=== PATIENT | male | born 1945 | race Caucasian/White ===

== ENCOUNTER → 2019-07-23 | Outpatient (REF) | payer OTHER ==
[2019-07-23 14:58] LABS: FREE T4 1.1 NG/DL (0.76-1.46); FREE THYROXINE INDEX 2.9 % (1.4-3.8); THYROID STIMULATING HORMONE 0.632 uIU/ML (0.358-3.740); THYROXINE (T4) 9.9 UG/DL (4.5-12.0)
== END ==
LOC: M LABNEURO 13:06
PROVIDERS: ATTEND Psychiatry & Neurology Neurology
DX: R25.1 Tremor, unspecified (principal); G20 Parkinson's disease; E07.9 Disorder of thyroid, unspecified; E61.0 Copper deficiency; Z79.899 Other long term (current) drug therapy

== ENCOUNTER → 2019-07-25 | Outpatient (CLI) | payer OTHER ==
[~2019-07-25] MED LIST: PROHANCE 279.3MG/ML 15ML VIAL (A9576) As Ordered ONE; PROHANCE 279.3MG/ML 5ML VIAL (A9576) As Ordered ONE
[2019-07-25 17:30] LABS: BLOOD UREA NITROGEN 19 MG/DL (7-18); CREATININE FOR GFR 1.03 MG/DL (0.70-1.30); GLOMERULAR FILTRATION RATE > 60.0 (>42)
--- NOTE | 2019-07-25 18:35 | REPVR ---
PROCEDURE INFORMATION: Exam: MR Angiogram Head Without Contrast, Arteries Exam date and time: 07/25/2019 5:47 PM Age: 74 years old Clinical indication: Dizziness and giddiness and other: HX CVA, tremor; Additional info: Cerebral infarction, unspecified, unsteadiness on; Ess tremor. Given the clinical concern for stroke, evaluation of the arteries was performed. TECHNIQUE: Imaging protocol: MR angiogram head without contrast. Exam focused on the arteries. 3D rendering: MIP and/or 3D reconstructed images were created by the technologist. COMPARISON: No relevant prior studies available. FINDINGS: Right internal carotid artery: Unremarkable. Intracranial segment is patent with no significant stenosis. No aneurysm. Right anterior cerebral artery: Unremarkable. No occlusion or significant stenosis. No aneurysm. Right middle cerebral artery: Unremarkable. No occlusion or significant stenosis. No aneurysm. Right posterior cerebral artery: Unremarkable. No occlusion or significant stenosis. No aneurysm. Right vertebral artery: Unremarkable. No occlusion or significant stenosis. No aneurysm. Left internal carotid artery: Unremarkable. Intracranial segment is patent with no significant stenosis. No aneurysm. Left anterior cerebral artery: Unremarkable. No occlusion or significant stenosis. No aneurysm. Left middle cerebral artery: Unremarkable. No occlusion or significant stenosis. No aneurysm. Left posterior cerebral artery: Unremarkable. No occlusion or significant stenosis. No aneurysm. Left vertebral artery: Unremarkable. No occlusion or significant stenosis. No aneurysm. Basilar artery: Unremarkable. No occlusion or significant stenosis. No aneurysm. IMPRESSION: No major proximal vessel branch occlusion seen. Electronically signed by: Junie Cardoza On 07/25/2019 18:35:04 PM
--- NOTE | 2019-07-25 18:44 | REPVR ---
PROCEDURE INFORMATION: Exam: MR Head Without Contrast Exam date and time: 07/25/2019 5:48 PM Age: 74 years old Clinical indication: Walking, difficulty and other: HX of CVA; Additional info: Cerebral infarction, unspecified, essential tremor, unsteadiness. TECHNIQUE: Imaging protocol: MR of the head without contrast. COMPARISON: No relevant prior studies available. FINDINGS: Brain: No acute infarct identified on the diffusion-weighted imaging. The brain demonstrates mild generalized volume loss. Patchy foci of increased signal intensity in the deep and subcortical white matter on the T2 weighted imaging most likely representing chronic small vessel ischemic change. No parenchymal hemorrhage. There is a small, chronic medial right frontal infarct. Asymmetrically prominent adjacent right frontoparietal deep and subcortical white matter high signal on the T2 weighted imaging (including involvement of the corpus callosum) probably reflects gliosis. Ventricles: The ventricles appear mildly enlarged in keeping with volume loss. Bones/joints: The upper cervical spine is visualized on the sagittal T1 sequence. There is prominent left facet arthropathy at C2-C3. Soft tissues: Unremarkable. Sinuses: Trace ethmoid mucosal thickening. Mastoid air cells: Normal as visualized. No mastoid effusion. Orbits: Unremarkable. IMPRESSION: No evidence of acute infarct. Medial right frontoparietal encephalomalacia perhaps reflecting an old infarct. Electronically signed by: Junie Cardoza On 07/25/2019 18:44:00 PM
--- NOTE | 2019-07-25 18:51 | REPVR ---
PROCEDURE INFORMATION: Exam: MR Angiography Neck Without and With Contrast Exam date and time: 07/25/2019 6:02 PM Age: 74 years old Clinical indication: Dizziness and giddiness and other: HX CVA, tremor; Prior surgery; Surgery date: 6+ months; Surgery type: RT carotid stent; Additional info: Cerebral infarction, unspecified, essential tremor, unsteadiness. TECHNIQUE: Imaging protocol: Magnetic resonance angiography of the neck without and with intravenous contrast. 3D rendering: MIP and/or 3D reconstructed images were created by the technologist. Contrast material: PROHANCE; Contrast volume: 25 ml; Contrast route: IV; COMPARISON: MRA BRAIN W/O CONTRAST 07/25/2019 4:50 PM FINDINGS: Right common carotid artery: Unremarkable. No stenosis. No dissection or occlusion. Right internal carotid artery: Attenuated appearance of the distal right common carotid artery and proximal right internal carotid artery perhaps related to a stent, please correlate with patient history. The mid and distal cervical right ICA appear patent. Right external carotid artery: Limited evaluation approximately due to artifact. Mid and distal right external carotid artery appear patent. Right vertebral artery: Unremarkable. No stenosis. No dissection or occlusion. Left common carotid artery: Unremarkable. No stenosis. No dissection or occlusion. Left internal carotid artery: Mild, approximate 40% left carotid bulb stenosis. Left external carotid artery: Unremarkable. No stenosis. No dissection or occlusion of the origin. Left vertebral artery: Unremarkable. No stenosis. No dissection or occlusion. IMPRESSION: 1. Suggestion of magnetic susceptibility artifact at the right carotid bifurcation perhaps related to a carotid stent. Please correlate with patient history. Limited assessment of the distal right common carotid and proximal right internal carotid arteries on this study. Suggest carotid duplex evaluation, as needed. 2. Mild left carotid bulb stenosis. COMMENT: Using NASCET method for measuring degree of carotid artery stenosis: Mild is less than 50% stenosis. Moderate is 50-69% stenosis. Severe is 70-94% stenosis. Near occlusion is 95-99% stenosis. Electronically signed by: Junie Cardoza On 07/25/2019 18:50:47 PM
== END ==
LOC: M RAD 16:10 → EDUNIT# 16:45
PROVIDERS: ATTEND Psychiatry & Neurology Neurology
DX: I63.9 Cerebral infarction, unspecified (principal); R26.81 Unsteadiness on feet; G25.0 Essential tremor
CPT/HCPCS: 36415; 70544; 70549; 70551; 82565; 84520; A9576

== ENCOUNTER 2020-07-19 18:44 | Emergency (ER) | payer MEDICARE, OTHER ==
[~2020-07-19] VITALS: Ht 182.9 cm; Wt 70.5 kg
[2020-07-19] MEDS ORDERED: OMEP40CA97 PO (19:19)
[2020-07-19] MEDS ORDERED: PRAZ1CAP PO (19:19)
[2020-07-19] MEDS ORDERED: SERT-138 PO (19:19)
[2020-07-19] MEDS ORDERED: BUPR150T4 PO (19:19)
[2020-07-19] MEDS ORDERED: ECOT81TA5 PO (19:19)
[2020-07-19] MEDS ORDERED: HYDR-643 PO (19:19)
[2020-07-19] MEDS ORDERED: ROSU40TA4 PO (19:19)
[2020-07-19] MEDS ORDERED: PRIM50TA6 PO (19:19)
[2020-07-19] MEDS ORDERED: ATEN25TA PO (19:19)
[2020-07-19] MEDS ORDERED: AMLO10TA PO (19:19)
[2020-07-19] MEDS ORDERED: PLAV1TAB2 PO (19:19)
--- NOTE | 2020-07-19 20:37 | REPVR ---
PROCEDURE INFORMATION: Exam: XR Bilateral Hips with Pelvis when Performed Exam date and time: 07/19/2020 8:25 PM Age: 75 years old Clinical indication: Hip pain; Left hip; Additional info: Fall, left hip pain TECHNIQUE: Imaging protocol: XR bilateral hips with pelvis when performed. Views: 2 views. COMPARISON: No relevant prior studies available. FINDINGS: Bones/joints: Degenerative spondylosis lower lumbar spine. Osteoporosis. ORIF left hip. Degenerative arthropathy both hip joints. Soft tissues: Unremarkable. IMPRESSION: No acute findings. Electronically signed by: Calin Vera On 07/19/2020 20:37:37 PM
--- NOTE | 2020-07-19 20:37 | REPVR ---
PROCEDURE INFORMATION: Exam: XR Left Femur Exam date and time: 07/19/2020 8:25 PM Age: 75 years old Clinical indication: Pain; Hip; Left; Additional info: Fall, left hip pain TECHNIQUE: Imaging protocol: XR Left femur. Views: 2 views. COMPARISON: No relevant prior studies available. FINDINGS: Bones/joints: Status post ORIF left hip. Osteoporosis. No acute fracture. Soft tissues: Unremarkable. Vasculature: Atherosclerotic changes femoral artery. IMPRESSION: 1. Status post ORIF left hip. 2. No acute fracture. Electronically signed by: Calin Vera On 07/19/2020 20:36:55 PM
[2020-07-19 22:29] VITALS: BP 155/80
--- NOTE | 2020-07-22 08:38 | ECGEPIP ---
[facility] - ED Test Date: 2020-07-19 Pat Name: ABENA PRATT Department: Room: - Gender: Male Mailroom Personnel: DESIRE : 1945 Requested By: Sandro Whitfield Order Number: [id number] Reading MD: Patti Morales Measurements Intervals [place] Rate: 77 P: 41 CT: 161 QRS: 44 QRSD: 116 T: -3 QT: 416 QTc: 473 Interpretive Statements SINUS RHYTHM NSTTW abnormalities prolonged qtc no prior Electronically Signed on 07-22-2020 8:38:04 EST by Patti Morales
== END 2020-07-19 22:40 | disposition home or self-care (01) ==
LOC: M ED 18:44
DX: S70.02XA Contusion of left hip, initial encounter (principal); W01.0XXA Fall on same level from slipping, tripping and stumbling without subsequent striking against object, initial encounter; Y92.019 Unspecified place in single-family (private) house as the place of occurrence of the external cause; Y93.9 Activity, unspecified; Y99.9 Unspecified external cause status; I10 Essential (primary) hypertension; R25.1 Tremor, unspecified; Z86.73 Personal history of transient ischemic attack (TIA), and cerebral infarction without residual deficits; F41.9 Anxiety disorder, unspecified; M81.0 Age-related osteoporosis without current pathological fracture; Z96.642 Presence of left artificial hip joint; Z79.899 Other long term (current) drug therapy

== ENCOUNTER 2022-03-26 12:53 | Emergency (ER) | payer MEDICARE ==
[~2022-03-26] VITALS: Ht 182.9 cm; Wt 75.0 kg
[~2022-03-26 12:53] MED LIST changes: +AMLO10TA PO; +ATEN25TA PO; +BUPR150T12 PO; +ECOT81TA5 PO; +HYDR-643 PO; +OMEP40CA4 PO; +PLAV1TAB2 PO; +PRAZ1CAP PO; +PRIM50TA6 PO; -PROHANCE 279.3MG/ML 15ML VIAL (A9576) As Ordered ONE; -PROHANCE 279.3MG/ML 5ML VIAL (A9576) As Ordered ONE; +ROSU40TA4 PO; +SERT-138 PO
[2022-03-26] MEDS ORDERED: VENTAER INH (13:05)
[2022-03-26 15:15] LABS: BASO # 0.1 10^3/uL (0.0-0.2); BASO % 0.6 % (0.0-1.0); EOS # 0.1 10^3/uL (0.0-0.5); EOS % 1.5 % (0.0-3.0); HEMATOCRIT 44.3 % (42.0-52.0); HEMOGLOBIN 14.6 g/dl (13.5-17.5); LYMPH # 1.1 10^3/uL (1.5-5.0); MEAN CORPUSCULAR HEMOGLOBIN 28.6 pg (27.0-33.0); MEAN CORPUSCULAR VOLUME 86.7 fl (80.0-96.0); MONO # 0.8 10^3/uL (0.0-0.8); MONO % 10.3 % (2.0-8.0); NEUTROPHILS % 73.4 % (36.0-66.0); PLATELET COUNT, AUTOMATED 190 10^3/uL (150-450); RED BLOOD COUNT 5.11 10^6/uL (4.30-6.10); WHITE BLOOD COUNT 8.2 10^3/uL (4.0-10.0)
[2022-03-26 15:59] LABS: ALBUMIN 4.2 GM/DL (3.2-5.2); ALT/SGPT 34 U/L (12-78); BILIRUBIN,TOTAL 1.2 MG/DL (0.2-1.0); BLOOD UREA NITROGEN 12 MG/DL (7-18); CALCIUM LEVEL 9.4 MG/DL (8.8-10.2); CARBON DIOXIDE LEVEL 22 MEQ/L (21-32); CHLORIDE LEVEL 109 MEQ/L (98-107); CREATININE FOR GFR 0.94 MG/DL (0.70-1.30); GLOMERULAR FILTRATION RATE > 60.0 (>42); GLUCOSE, FASTING 107 MG/DL (70-100); POTASSIUM SERUM 3.9 MEQ/L (3.5-5.1); SODIUM LEVEL 138 MEQ/L (136-145); TOTAL PROTEIN 7.5 GM/DL (6.4-8.2)
[2022-03-26] MEDS ORDERED: ISOVUE-370 76% 100ML VIAL As Ordered ONE (19:37)
[2022-03-26] MEDS ORDERED: MECL1TAB31 PO (20:45)
[2022-03-26 20:46] VITALS: BP 160/89
[2022-03-26] MEDS ORDERED: MECLIZINE 25 MG TABLET PO ONE (21:10)
== END 2022-03-26 21:19 | disposition home or self-care (01) ==
LOC: M ED 12:53
DX: H81.4 Vertigo of central origin (principal); F41.9 Anxiety disorder, unspecified; Z86.73 Personal history of transient ischemic attack (TIA), and cerebral infarction without residual deficits; Z79.51 Long term (current) use of inhaled steroids; Z79.01 Long term (current) use of anticoagulants; Z79.899 Other long term (current) drug therapy
CPT/HCPCS: 36415; 70450; 70496; 70498; 80053; 84443; 85025; 93005; 97112; 97116; 97162; 99285; Q9967

== ENCOUNTER → 2024-08-13 | Outpatient (CLI) | payer MEDICARE, OTHER ==
[~2024-08-13] MED LIST changes: +CLOP75TA99 PO; +MECL-209 PO; -PLAV1TAB2 PO; -ROSU40TA4 PO; +ROSU40TA81 PO; +VENTAER INH
== END ==
LOC: M RAD 15:37
PROVIDERS: ATTEND Physician Assistant Medical
DX: Z12.2 Encounter for screening for malignant neoplasm of respiratory organs (principal); Z87.891 Personal history of nicotine dependence; K80.20 Calculus of gallbladder without cholecystitis without obstruction; R91.1 Solitary pulmonary nodule

== ENCOUNTER 2024-09-17 16:47 | Emergency (ER) | payer OTHER ==
[~2024-09-17] VITALS: Ht 182.9 cm; Wt 72.0 kg
[2024-09-17 16:52] VITALS: BP 149/75; TEMP 96.2; O2SAT 96
== END 2024-09-17 19:36 | disposition left against medical advice (07) ==
LOC: M ED 16:47
DX: Z53.21 Procedure and treatment not carried out due to patient leaving prior to being seen by health care provider (principal)

== ENCOUNTER 2025-01-24 15:49 | Inpatient (IN) | payer OTHER, MEDICARE ==
[~2025-01-24] VITALS: Ht 180.3 cm; Wt 71.5 kg
[~2025-01-24 15:49] MED LIST changes: +AMLO-751 PO; -AMLO10TA PO
[2025-01-24 17:36] LABS: BASO # 0.0 10^3/uL (0.0-0.2); BASO % 0.3 % (0.0-1.0); EOS # 0.1 10^3/uL (0.0-0.5); EOS % 0.7 % (0.0-3.0); LYMPH # 0.9 10^3/uL (1.5-5.0); LYMPH % 5.9 % (24.0-44.0); MONO # 1.3 10^3/uL (0.0-0.8); MONO % 8.8 % (2.0-8.0); NEUTROPHILS # 12.3 10^3/uL (1.5-8.5); NEUTROPHILS % 83.9 % (36.0-66.0); PLATELET COUNT, AUTOMATED 153 10^3/uL (150-450)
[2025-01-24 18:05] LABS: CALCIUM LEVEL 8.2 MG/DL (8.3-10.6); CARBON DIOXIDE LEVEL 22 MMOL/L (20-31); CHLORIDE LEVEL 107 MMOL/L (98-107); CREATININE FOR GFR 0.76 MG/DL (0.70-1.30); GLOMERULAR FILTRATION RATE > 90.0 (>42); POTASSIUM SERUM 3.5 MMOL/L (3.5-5.1); SODIUM LEVEL 141 MMOL/L (136-145)
[2025-01-24 18:52] LABS: ETHYL ALCOHOL (ETHANOL) < 0.003 % (0.000-0.010)
[2025-01-24 18:54] LABS: ALT/SGPT 34 U/L (7.0-40); AST/SGOT 34 U/L (<34); SALICYLATE LEVEL < 3.0 MG/DL (<30)
[2025-01-24] MEDS: MORPHINE 4 MG/ML 1 ML VIAL IV ONE ×2 (19:10→22:22)
[2025-01-24 19:21] LABS: AMPHETAMINES LEVEL URINE NEGATIVE (NEGATIVE); BARBITURATES URINE NEGATIVE (NEGATIVE); BENZODIAZEPINES URINE NEGATIVE (NEGATIVE); CANNABINOIDS URINE NEGATIVE (NEGATIVE); COCAINE METABOLITE URINE NEGATIVE (NEGATIVE); METHADONE URINE NEGATIVE (NEGATIVE); PHENCYCLIDINE URINE NEGATIVE (NEGATIVE)
[2025-01-24 19:37] LABS: OPIATES URINE POSITIVE (NEGATIVE)
[2025-01-24] MEDS ORDERED: ZOLO100T PO (21:23)
[2025-01-24] MEDS ORDERED: GLIP5TAB17 PO (21:25)
[2025-01-24] MEDS ORDERED: OSTETAB2 PO (21:25)
[2025-01-24] MEDS ORDERED: HOME MED LIST COMPLETE! XX SCH (21:30)
[2025-01-24] MEDS ORDERED: ALBUTEROL SULFATE 2.5 MG/0.5 ML INH CONCENTRATE NEB SOLN NEB PRN (22:55)
[2025-01-25] MEDS: KETOROLAC 30 MG/ML 1 ML VIAL IV SCH (01:06)
[2025-01-25] MEDS: ACETAMINOPHEN 325 MG TAB PO SCH (01:06)
[2025-01-25 06:39] LABS: BASO # 0.0 10^3/uL (0.0-0.2); BASO % 0.2 % (0.0-1.0); EOS # 0.0 10^3/uL (0.0-0.5); EOS % 0.0 % (0.0-3.0); LYMPH # 1.1 10^3/uL (1.5-5.0); LYMPH % 10.4 % (24.0-44.0); MONO # 1.5 10^3/uL (0.0-0.8); MONO % 14.4 % (2.0-8.0); NEUTROPHILS # 8.0 10^3/uL (1.5-8.5); NEUTROPHILS % 74.5 % (36.0-66.0); PLATELET COUNT, AUTOMATED 175 10^3/uL (150-450)
[2025-01-25 07:14] LABS: CALCIUM LEVEL 8.2 MG/DL (8.3-10.6); CARBON DIOXIDE LEVEL 26.0 MMOL/L (20-31); CHLORIDE LEVEL 107.0 MMOL/L (98-107); CREATININE FOR GFR 0.99 MG/DL (0.70-1.30); GLOMERULAR FILTRATION RATE 78.5 (>42); POTASSIUM SERUM 4.1 MMOL/L (3.5-5.1); SODIUM LEVEL 144.0 MMOL/L (136-145)
[2025-01-25] MEDS: PANTOPRAZOLE 40MG VIAL IV SCH (08:30)
[2025-01-25] MEDS: buPROPion **XL** 150 MG TABLET PO SCH (08:31)
[2025-01-25] MEDS: SERTRALINE 100 MG TAB PO SCH (08:32)
[2025-01-25] MEDS: ENOXAPARIN 40 MG/0.4 ML SYRINGE (J1650 PER 10MG) SC SCH (09:00)
[2025-01-25] MEDS ORDERED: SODIUM CHLORIDE 0.9% 1000 ML IV ONE (10:35)
[2025-01-25] MEDS: NS (Normal Saline) 0.9% 1,000 ML IV SCH (10:44)
[2025-01-25 15:05] VITALS: BP 130/81; TEMP 98.1; O2SAT 95
[2025-01-25] MEDS: MORPHINE 4 MG/ML 1 ML VIAL IV PRN (21:26)
[2025-01-25 21:33] VITALS: BP 133/92; TEMP 98.1; O2SAT 92
[2025-01-26] VITALS (10 sets, daily range): BP systolic 104–140; BP diastolic 47–73; TEMP 97.2–99.3; O2SAT 87–98
[2025-01-26 07:37] LABS: BASO # 0.0 10^3/uL (0.0-0.2); BASO % 0.2 % (0.0-1.0); EOS # 0.1 10^3/uL (0.0-0.5); EOS % 0.6 % (0.0-3.0); LYMPH # 0.8 10^3/uL (1.5-5.0); LYMPH % 6.1 % (24.0-44.0); MONO # 1.3 10^3/uL (0.0-0.8); MONO % 10.5 % (2.0-8.0); NEUTROPHILS # 10.4 10^3/uL (1.5-8.5); NEUTROPHILS % 82.0 % (36.0-66.0)
[2025-01-26 07:41] LABS: PLATELET COUNT, AUTOMATED 121 10^3/uL (150-450)
[2025-01-26] MEDS ORDERED: MIDAZOLAM INJ 2 MG/2 ML VIAL As Ordered ONE (07:56)
[2025-01-26] MEDS ORDERED: dexAMETHasone 4 MG/ML 1 ML VIAL As Ordered ONE (07:57)
[2025-01-26] MEDS ORDERED: SUGAMMADEX SODIUM 500 MG/5 ML VIAL As Ordered ONE (07:57)
[2025-01-26] MEDS ORDERED: ONDANSETRON 4MG 2ML VIAL As Ordered ONE (07:57)
[2025-01-26] MEDS ORDERED: KETOROLAC 30 MG/ML 1 ML VIAL As Ordered ONE (07:57)
[2025-01-26] MEDS ORDERED: LIDOCAINE 2% 100 MG/5 ML SDV (FOR ANES.) As Ordered ONE (07:57)
[2025-01-26] MEDS ORDERED: ROCURONIUM BROMIDE 50MG/5ML VIAL As Ordered ONE (07:57)
[2025-01-26] MEDS ORDERED: ACETAMINOPHEN 1000MG/100ML IV BAG As Ordered ONE (07:57)
[2025-01-26 07:59] LABS: CALCIUM LEVEL 7.9 MG/DL (8.3-10.6); CARBON DIOXIDE LEVEL 24.0 MMOL/L (20-31); CHLORIDE LEVEL 107.0 MMOL/L (98-107); CREATININE FOR GFR 1.18 MG/DL (0.70-1.30); GLOMERULAR FILTRATION RATE 63.6 (>42); POTASSIUM SERUM 3.6 MMOL/L (3.5-5.1); SODIUM LEVEL 142.0 MMOL/L (136-145)
[2025-01-26] MEDS: NS (Normal Saline) 0.9% 1,000 ML IV SCH (09:00)
[2025-01-26] MEDS: TRANEXAMIC ACID 100 MG/ML 10ML VIAL As Ordered ONE (09:23)
[2025-01-26] MEDS ORDERED: HYDROmorphone HCL 2 MG/ML 1 ML VIAL As Ordered ONE (09:41)
[2025-01-26] MEDS ORDERED: PHENYLephrine 500MCG 5ML (100MCG/ML) SYRINGE As Ordered ONE (10:57)
[2025-01-26] MEDS: ceFAZolin SODIUM 2 GM in DEXTROSE 5% (D5W) ADV/MINI-BAG 50 ML IV SCH (18:00)
[2025-01-27] VITALS (8 sets, daily range): BP systolic 108–118; BP diastolic 47–69; TEMP 97.9–98.8; O2SAT 92–96
[2025-01-27 07:52] LABS: CALCIUM LEVEL 6.8 MG/DL (8.3-10.6); CARBON DIOXIDE LEVEL 24.0 MMOL/L (20-31); CHLORIDE LEVEL 110.0 MMOL/L (98-107); CREATININE FOR GFR 0.98 MG/DL (0.70-1.30); GLOMERULAR FILTRATION RATE 79.4 (>42); POTASSIUM SERUM 3.6 MMOL/L (3.5-5.1); SODIUM LEVEL 145.0 MMOL/L (136-145)
[2025-01-27 08:12] LABS: BASO # 0.0 10^3/uL (0.0-0.2); BASO % 0.3 % (0.0-1.0); EOS # 0.1 10^3/uL (0.0-0.5); EOS % 1.4 % (0.0-3.0); LYMPH # 1.0 10^3/uL (1.5-5.0); LYMPH % 12.5 % (24.0-44.0); MONO # 0.9 10^3/uL (0.0-0.8); MONO % 11.8 % (2.0-8.0); NEUTROPHILS # 5.8 10^3/uL (1.5-8.5); NEUTROPHILS % 73.5 % (36.0-66.0)
[2025-01-27 08:51] LABS: PLATELET COUNT, AUTOMATED 95 10^3/uL (150-450)
[2025-01-27] MEDS: ACETAMINOPHEN 500 MG TAB PO SCH (09:28)
[2025-01-28 08:55] LABS: BASO # 0.0 10^3/uL (0.0-0.2); BASO % 0.4 % (0.0-1.0); EOS # 0.3 10^3/uL (0.0-0.5); EOS % 3.2 % (0.0-3.0); LYMPH # 0.9 10^3/uL (1.5-5.0); LYMPH % 10.7 % (24.0-44.0); MONO # 1.1 10^3/uL (0.0-0.8); MONO % 13.5 % (2.0-8.0); NEUTROPHILS # 6.1 10^3/uL (1.5-8.5); NEUTROPHILS % 71.7 % (36.0-66.0); PLATELET COUNT, AUTOMATED 124 10^3/uL (150-450)
[2025-01-28 09:09] LABS: CALCIUM LEVEL 7.3 MG/DL (8.3-10.6); CARBON DIOXIDE LEVEL 26 MMOL/L (20-31); CHLORIDE LEVEL 107 MMOL/L (98-107); CREATININE FOR GFR 0.72 MG/DL (0.70-1.30); GLOMERULAR FILTRATION RATE > 90.0 (>42); POTASSIUM SERUM 3.5 MMOL/L (3.5-5.1); SODIUM LEVEL 144 MMOL/L (136-145)
[2025-01-28] MEDS: ENOXAPARIN 40 MG/0.4 ML SYRINGE (J1650 PER 10MG) SC SCH (10:29)
[2025-01-28] MEDS ORDERED: TRAM50TA2 PO (13:33)
[2025-01-28] MEDS ORDERED: SENN1TAB85 PO (13:33)
[2025-01-28] MEDS ORDERED: FERR325T3 PO (13:33)
[2025-01-28] MEDS ORDERED: OXYC-517 PO (13:33)
[2025-01-28] MEDS ORDERED: ACET-683 PO (13:33)
[2025-01-28] MEDS ORDERED: ENOX40IN3 SC (13:33)
[2025-01-28 14:00] VITALS: BP 117/59; TEMP 98.2; O2SAT 94
== END 2025-01-28 16:30 | DRG 481 ==
LOC: M ED 15:49 → EDBD 15:49 → M ED INP 22:53 → M MS5PR 01-25 15:00
PROVIDERS: ADMIT Internal Medicine Nephrology; ATTEND Internal Medicine Nephrology
PROC: 0QS606Z Reposition Right Upper Femur with Intramedullary Internal Fixation Device, Open Approach (ICD-10-PCS; principal; 2025-01-26 08:30)
PROC: 30233N1 Transfusion of Nonautologous Red Blood Cells into Peripheral Vein, Percutaneous Approach (ICD-10-PCS; 2025-01-27)
DX: S72.21XA Displaced subtrochanteric fracture of right femur, initial encounter for closed fracture (principal); R45.851 Suicidal ideations; D62 Acute posthemorrhagic anemia; S42.201A Unspecified fracture of upper end of right humerus, initial encounter for closed fracture; S72.141A Displaced intertrochanteric fracture of right femur, initial encounter for closed fracture; F32.A Depression, unspecified; J44.9 Chronic obstructive pulmonary disease, unspecified; I10 Essential (primary) hypertension; E11.51 Type 2 diabetes mellitus with diabetic peripheral angiopathy without gangrene; E78.5 Hyperlipidemia, unspecified; F17.200 Nicotine dependence, unspecified, uncomplicated; Z95.5 Presence of coronary angioplasty implant and graft; Z95.1 Presence of aortocoronary bypass graft; M48.02 Spinal stenosis, cervical region; M85.80 Other specified disorders of bone density and structure, unspecified site; G25.0 Essential tremor; W20.8XXA Other cause of strike by thrown, projected or falling object, initial encounter; Y92.009 Unspecified place in unspecified non-institutional (private) residence as the place of occurrence of the external cause; Z86.73 Personal history of transient ischemic attack (TIA), and cerebral infarction without residual deficits

== ENCOUNTER 2025-01-28 14:05 | Inpatient (IN) | payer MEDICARE, OTHER ==
[~2025-01-28] VITALS: Ht 180.3 cm; Wt 68.9 kg
[2025-01-28] MEDS: FERROUS SULFATE 325 MG TAB PO SCH (09:00)
[~2025-01-28 14:05] MED LIST changes: +ACET-683 PO; +ENOX40IN3 SC; +FERR325T3 PO; +GLIP5TAB17 PO; +OSTETAB2 PO; +OXYC-517 PO; +SENN1TAB85 PO; +TRAM50TA2 PO; +ZOLO100T PO
[2025-01-28] MEDS ORDERED: ONDANSETRON 4MG ORAL DISINTEGRATING TAB PO PRN (15:20)
[2025-01-28] MEDS ORDERED: ALBUTEROL 90 MCG/ACT 8 GM HFA INHALER INH PRN (15:20)
[2025-01-28] MEDS ORDERED: BISACODYL 5 MG TAB PO PRN (15:40)
[2025-01-28] MEDS ORDERED: MOM 30 ML SUSPENSION UDC PO PRN (15:40)
[2025-01-28] MEDS ORDERED: BISACODYL 10 MG SUPP PR PRN (15:40)
[2025-01-28] MEDS ORDERED: MAALOX 30 ML SUSP *UDC PO PRN (15:40)
[2025-01-28 16:30] VITALS: BP 169/79; TEMP 99.9; O2SAT 94
[2025-01-28] MEDS: ACETAMINOPHEN 500 MG TAB PO SCH (17:09)
[2025-01-28 19:40] VITALS: BP 167/79; TEMP 97.1; O2SAT 92
[2025-01-28] MEDS: SENNOSIDES/DOCUSATE SODIUM 8.6 MG/50MG TAB PO SCH (20:46)
[2025-01-28] MEDS: ROSUVASTATIN 10 MG TAB PO SCH (20:46)
[2025-01-28] MEDS: PERCOCET 5MG/325MG TAB PO PRN (22:22)
[2025-01-29 04:20] VITALS: BP 159/70; TEMP 97.6; O2SAT 95
[2025-01-29] MEDS: MIRALAX *UNIT DOSE* 17 GM PACKET PO SCH (07:14)
[2025-01-29 07:18] LABS: BASO # 0.0 10^3/uL (0.0-0.2); BASO % 0.2 % (0.0-1.0); EOS # 0.2 10^3/uL (0.0-0.5); EOS % 2.1 % (0.0-3.0); LYMPH # 0.7 10^3/uL (1.5-5.0); LYMPH % 7.2 % (24.0-44.0); MONO # 1.0 10^3/uL (0.0-0.8); MONO % 10.3 % (2.0-8.0); NEUTROPHILS # 7.5 10^3/uL (1.5-8.5); NEUTROPHILS % 79.3 % (36.0-66.0); PLATELET COUNT, AUTOMATED 140 10^3/uL (150-450)
[2025-01-29] MEDS: OMEPRAZOLE 20MG CAP PO SCH (07:24)
[2025-01-29] MEDS: SERTRALINE 100 MG TAB PO SCH (07:24)
[2025-01-29] MEDS: buPROPion **XL** 150 MG TABLET PO SCH (07:25)
[2025-01-29] MEDS: ENOXAPARIN 40 MG/0.4 ML SYRINGE (J1650 PER 10MG) SC SCH (07:26)
[2025-01-29] MEDS: CLOPIDOGREL 75 MG TAB PO SCH (07:27)
[2025-01-29] MEDS: glipiZIDE 5 MG TAB PO SCH (07:27)
[2025-01-29 07:42] LABS: CALCIUM LEVEL 7.9 MG/DL (8.3-10.6); CARBON DIOXIDE LEVEL 26 MMOL/L (20-31); CHLORIDE LEVEL 108 MMOL/L (98-107); CREATININE FOR GFR 0.66 MG/DL (0.70-1.30); GLOMERULAR FILTRATION RATE > 90.0 (>42); POTASSIUM SERUM 3.3 MMOL/L (3.5-5.1); SODIUM LEVEL 144 MMOL/L (136-145)
[2025-01-29 08:37] VITALS: BP 126/64; O2SAT 95
[2025-01-29 11:16] VITALS: BP 130/62
[2025-01-29] MEDS: **hydrALAZINE HCL** 25 MG TAB PO ONE (11:17)
[2025-01-29] MEDS: amLODIPine 5 MG TAB PO ONE (11:26)
[2025-01-29 12:00] VITALS: BP 104/85; TEMP 98.1; O2SAT 94
[2025-01-29 19:35] VITALS: BP 159/74; TEMP 96.7; O2SAT 95
[2025-01-29] MEDS: amLODIPine 5 MG TAB PO SCH (20:42)
[2025-01-29 21:10] VITALS: BP 142/71
[2025-01-30 03:33] VITALS: BP 157/69; TEMP 96.8; O2SAT 93
[2025-01-30] MEDS: **hydrALAZINE HCL** 25 MG TAB PO PRN (04:35)
[2025-01-30 05:00] VITALS: BP 143/74
[2025-01-30] MEDS: SIMETHICONE 80MG CHEW TAB PO PRN (06:25)
[2025-01-30] MEDS ORDERED: SALIVA SUBSTITUTE BTL MT PRN (15:55)
[2025-01-30] MEDS ORDERED: PILL CUTTER 1 EACH XX PRN (16:05)
[2025-01-30] MEDS: LIDOCAINE 5% PATCH TD ONE (17:13)
[2025-01-30 20:00] VITALS: BP 134/62; TEMP 98.2; O2SAT 95
[2025-01-31 04:00] VITALS: BP 142/68; TEMP 97.5; O2SAT 92
[2025-01-31 07:32] LABS: PLATELET COUNT, AUTOMATED 259 10^3/uL (150-450)
[2025-01-31 08:01] LABS: CALCIUM LEVEL 8.2 MG/DL (8.3-10.6); CARBON DIOXIDE LEVEL 25.0 MMOL/L (20-31); CHLORIDE LEVEL 103.0 MMOL/L (98-107); CREATININE FOR GFR 0.85 MG/DL (0.70-1.30); GLOMERULAR FILTRATION RATE 89.5 (>42); POTASSIUM SERUM 3.0 MMOL/L (3.5-5.1); SODIUM LEVEL 141.0 MMOL/L (136-145)
[2025-01-31] MEDS: LIDOCAINE 5% PATCH TD SCH (09:00)
[2025-01-31 12:00] VITALS: BP 117/59; TEMP 96.8; O2SAT 97
[2025-01-31] MEDS: POTASSIUM CHLORIDE 10MEQ SR TABLET PO ONE (12:34)
[2025-01-31] MEDS: POTASSIUM CHLORIDE 10MEQ SR TABLET PO SCH (19:55)
[2025-01-31 20:00] VITALS: BP 120/58; TEMP 99.1; O2SAT 95
[2025-02-01 04:00] VITALS: BP 153/69; TEMP 98.7; O2SAT 95
[2025-02-01 09:51] LABS: BASO # 0.1 10^3/uL (0.0-0.2); BASO % 0.4 % (0.0-1.0); EOS # 0.4 10^3/uL (0.0-0.5); EOS % 3.5 % (0.0-3.0); LYMPH # 0.6 10^3/uL (1.5-5.0); LYMPH % 5.3 % (24.0-44.0); MONO # 1.2 10^3/uL (0.0-0.8); MONO % 10.3 % (2.0-8.0); NEUTROPHILS # 9.2 10^3/uL (1.5-8.5); NEUTROPHILS % 76.6 % (36.0-66.0); PLATELET COUNT, AUTOMATED 258 10^3/uL (150-450)
[2025-02-01 10:19] LABS: CALCIUM LEVEL 8.3 MG/DL (8.3-10.6); CARBON DIOXIDE LEVEL 24.0 MMOL/L (20-31); CHLORIDE LEVEL 104.0 MMOL/L (98-107); CREATININE FOR GFR 1.47 MG/DL (0.70-1.30); GLOMERULAR FILTRATION RATE 48.8 (>42); POTASSIUM SERUM 3.6 MMOL/L (3.5-5.1); SODIUM LEVEL 140.0 MMOL/L (136-145)
[2025-02-01] MEDS: POTASSIUM CHLORIDE 10MEQ SR TABLET PO ONE (12:24)
[2025-02-01] MEDS: NS (Normal Saline) 0.9% 1,000 ML IV SCH (13:05)
[2025-02-01 13:26] VITALS: BP 135/61; TEMP 97.9; O2SAT 98
[2025-02-01 16:54] LABS: KETONE, URINE AUTO RFX NEGATIVE (NEGATIVE); LEUKOCYTE ESTERASE UR AUTO RFX NEGATIVE (NEGATIVE); MUCUS, URINE RFX SMALL (NEGATIVE); NITRITE, URINE AUTO RFX NEGATIVE (NEGATIVE); RBC, URINE AUTO RFX 5 /HPF (0-3); SQUAM EPITHELIAL CELL UR AURFX 0 /HPF (0-6)
[2025-02-01 16:55] LABS: WBC, URINE AUTO RFX 15 /HPF (0-3)
[2025-02-01 20:00] VITALS: BP 111/54; TEMP 96.9; O2SAT 94
[2025-02-02 03:34] VITALS: BP 161/70; TEMP 98.7; O2SAT 97
[2025-02-02] MEDS: POTASSIUM CHLORIDE 10MEQ SR TABLET PO SCH (07:20)
[2025-02-02 08:35] LABS: CALCIUM LEVEL 7.6 MG/DL (8.3-10.6); CARBON DIOXIDE LEVEL 23 MMOL/L (20-31); CHLORIDE LEVEL 108 MMOL/L (98-107); CREATININE FOR GFR 0.81 MG/DL (0.70-1.30); GLOMERULAR FILTRATION RATE > 90.0 (>42); POTASSIUM SERUM 3.7 MMOL/L (3.5-5.1); SODIUM LEVEL 141 MMOL/L (136-145)
[2025-02-02 12:08] VITALS: BP 144/65; TEMP 97.8; O2SAT 98
[2025-02-02 20:00] VITALS: BP_SYST 132; BP_SYST 141; BP_DIAS 66; BP_DIAS 68; TEMP 97.1; O2SAT 97
[2025-02-03 04:00] VITALS: BP 150/83; TEMP 97.1; O2SAT 95
[2025-02-03 07:24] LABS: PLATELET COUNT, AUTOMATED 232 10^3/uL (150-450)
[2025-02-03 08:02] LABS: CALCIUM LEVEL 7.4 MG/DL (8.3-10.6); CARBON DIOXIDE LEVEL 22 MMOL/L (20-31); CHLORIDE LEVEL 107 MMOL/L (98-107); CREATININE FOR GFR 0.65 MG/DL (0.70-1.30); GLOMERULAR FILTRATION RATE > 90.0 (>42); POTASSIUM SERUM 3.8 MMOL/L (3.5-5.1); SODIUM LEVEL 141 MMOL/L (136-145)
[2025-02-03 12:00] VITALS: BP 152/65; TEMP 98.2; O2SAT 95
[2025-02-03 20:00] VITALS: BP 157/72; TEMP 98.4; O2SAT 94
[2025-02-04 04:00] VITALS: BP 151/65; TEMP 98.4; O2SAT 94
[2025-02-04 08:26] LABS: CALCIUM LEVEL 7.9 MG/DL (8.3-10.6); CARBON DIOXIDE LEVEL 25 MMOL/L (20-31); CHLORIDE LEVEL 105 MMOL/L (98-107); CREATININE FOR GFR 0.62 MG/DL (0.70-1.30); GLOMERULAR FILTRATION RATE > 90.0 (>42); POTASSIUM SERUM 4.0 MMOL/L (3.5-5.1); SODIUM LEVEL 140 MMOL/L (136-145)
[2025-02-04 12:39] VITALS: BP 134/60; TEMP 98.1; O2SAT 97
[2025-02-04 20:00] VITALS: BP 146/67; TEMP 97.9; O2SAT 95
[2025-02-04] MEDS: TAMSULOSIN 0.4 MG CAP PO SCH (20:35)
[2025-02-05 04:00] VITALS: BP 156/72; TEMP 98.3; O2SAT 96
[2025-02-05 05:00] VITALS: BP 146/68
[2025-02-05 07:39] LABS: CALCIUM LEVEL 8.1 MG/DL (8.3-10.6); CARBON DIOXIDE LEVEL 24 MMOL/L (20-31); CHLORIDE LEVEL 104 MMOL/L (98-107); CREATININE FOR GFR 0.62 MG/DL (0.70-1.30); GLOMERULAR FILTRATION RATE > 90.0 (>42); POTASSIUM SERUM 3.9 MMOL/L (3.5-5.1); SODIUM LEVEL 139 MMOL/L (136-145)
[2025-02-05 12:13] VITALS: BP 129/72; TEMP 98.7; O2SAT 96
[2025-02-05] MEDS: IBUPROFEN 400 MG TAB PO SCH (13:52)
[2025-02-05] MEDS: BISACODYL 5 MG TAB PO ONE (16:13)
[2025-02-05 20:00] VITALS: BP 148/70; TEMP 98.4; O2SAT 93
[2025-02-05] MEDS: FAMOTIDINE 20 MG TAB PO SCH (20:34)
[2025-02-06 04:00] VITALS: BP 161/73; TEMP 97.8; O2SAT 96
[2025-02-06 04:38] VITALS: BP 148/76
[2025-02-06 07:37] LABS: PLATELET COUNT, AUTOMATED 341 10^3/uL (150-450)
[2025-02-06] MEDS ORDERED: BISACODYL 5 MG TAB PO ONE (10:25)
[2025-02-06 12:00] VITALS: BP 116/56; TEMP 97.9; O2SAT 98
[2025-02-06] MEDS: LIDOCAINE 5% PATCH TD ONE (13:33)
[2025-02-06 20:00] VITALS: BP 141/60; TEMP 97.6; O2SAT 97
[2025-02-07 04:00] VITALS: BP 162/76; TEMP 98.2; O2SAT 95
[2025-02-07 05:03] VITALS: BP 148/78
[2025-02-07] MEDS: LIDOCAINE 5% PATCH TD SCH (07:08)
[2025-02-07 11:50] VITALS: BP 151/69; TEMP 97.7; O2SAT 98
[2025-02-07 20:00] VITALS: BP 148/65; TEMP 97.8; O2SAT 95
[2025-02-08 05:00] VITALS: BP 162/78; TEMP 97.4; O2SAT 97
[2025-02-08 08:09] LABS: BASO # 0.1 10^3/uL (0.0-0.2); BASO % 0.5 % (0.0-1.0); EOS # 0.4 10^3/uL (0.0-0.5); EOS % 3.2 % (0.0-3.0); LYMPH # 0.7 10^3/uL (1.5-5.0); LYMPH % 6.6 % (24.0-44.0); MONO # 0.7 10^3/uL (0.0-0.8); MONO % 6.4 % (2.0-8.0); NEUTROPHILS # 9.1 10^3/uL (1.5-8.5); NEUTROPHILS % 82.4 % (36.0-66.0); PLATELET COUNT, AUTOMATED 325 10^3/uL (150-450)
[2025-02-08 08:32] LABS: CALCIUM LEVEL 8.3 MG/DL (8.3-10.6); CARBON DIOXIDE LEVEL 22 MMOL/L (20-31); CHLORIDE LEVEL 106 MMOL/L (98-107); CREATININE FOR GFR 0.60 MG/DL (0.70-1.30); GLOMERULAR FILTRATION RATE > 90.0 (>42); POTASSIUM SERUM 4.5 MMOL/L (3.5-5.1); SODIUM LEVEL 139 MMOL/L (136-145)
[2025-02-08] MEDS ORDERED: ONDANSETRON 4MG ORAL DISINTEGRATING TAB SL PRN (10:35)
[2025-02-08 11:39] VITALS: BP 112/56; TEMP 97.7; O2SAT 96
[2025-02-08] MEDS ORDERED: VANICREAM MOISTURIZING SKIN CREAM 113GM TUBE TOP PRN (13:25)
[2025-02-08 20:00] VITALS: BP 144/66; TEMP 97.3; O2SAT 97
[2025-02-09 04:00] VITALS: BP 124/61; TEMP 98.3; O2SAT 96
[2025-02-09 11:51] VITALS: BP 150/70; TEMP 98.2; O2SAT 98
[2025-02-09 20:00] VITALS: BP 145/68; TEMP 98; O2SAT 98
[2025-02-10 04:00] VITALS: BP 161/82; TEMP 98.1; O2SAT 96
[2025-02-10 05:00] VITALS: BP 142/76
[2025-02-10 12:01] VITALS: BP 146/66; TEMP 98.2; O2SAT 98
[2025-02-10 20:00] VITALS: BP 158/74; TEMP 97.7; O2SAT 96
[2025-02-11 04:00] VITALS: BP 154/75; TEMP 97.6; O2SAT 95
[2025-02-11 07:54] LABS: BASO # 0.1 10^3/uL (0.0-0.2); BASO % 0.9 % (0.0-1.0); EOS # 0.3 10^3/uL (0.0-0.5); EOS % 3.6 % (0.0-3.0); LYMPH # 0.7 10^3/uL (1.5-5.0); LYMPH % 9.6 % (24.0-44.0); MONO # 0.8 10^3/uL (0.0-0.8); MONO % 10.1 % (2.0-8.0); NEUTROPHILS # 5.7 10^3/uL (1.5-8.5); NEUTROPHILS % 75.0 % (36.0-66.0); PLATELET COUNT, AUTOMATED 338 10^3/uL (150-450)
[2025-02-11 08:20] LABS: CALCIUM LEVEL 8.7 MG/DL (8.3-10.6); CARBON DIOXIDE LEVEL 25 MMOL/L (20-31); CHLORIDE LEVEL 103 MMOL/L (98-107); CREATININE FOR GFR 0.65 MG/DL (0.70-1.30); GLOMERULAR FILTRATION RATE > 90.0 (>42); POTASSIUM SERUM 4.1 MMOL/L (3.5-5.1); SODIUM LEVEL 139 MMOL/L (136-145)
[2025-02-11] MEDS ORDERED: OXYC-517 PO (12:23)
[2025-02-11] MEDS ORDERED: HYDR25TA87 PO (12:23)
[2025-02-11] MEDS ORDERED: LIDO5TD TD (12:23)
[2025-02-11] MEDS ORDERED: VANI1CRE5 TOP (12:23)
[2025-02-11] MEDS ORDERED: ZOLP-532 PO (12:23)
[2025-02-11] MEDS ORDERED: POTA-136 PO (12:23)
[2025-02-11] MEDS ORDERED: METH-1165 PO (12:23)
[2025-02-11] MEDS ORDERED: AMLO1TAB24 PO (12:23)
[2025-02-11] MEDS ORDERED: IBUP-1114 PO (12:23)
[2025-02-11] MEDS ORDERED: TAMS-18 PO (12:23)
[2025-02-11] MEDS ORDERED: FAMO20TA PO (12:23)
[2025-02-11 12:30] VITALS: BP 116/60; TEMP 98.6; O2SAT 96
[2025-02-11 20:00] VITALS: BP 161/67; TEMP 97.6; O2SAT 96
[2025-02-11 21:05] VITALS: BP 152/78
[2025-02-12 04:00] VITALS: BP 182/87; TEMP 98.1; O2SAT 95
[2025-02-12 04:29] VITALS: BP 168/80
[2025-02-12 06:00] VITALS: BP 146/76
[2025-02-12] MEDS: CLOPIDOGREL 75 MG TAB PO SCH (09:50)
[2025-02-12] MEDS: hydroCHLOROthiazide 25 MG TAB PO ONE (10:13)
[2025-02-12 12:11] VITALS: BP 136/63; TEMP 98.5; O2SAT 97
[2025-02-12 12:14] VITALS: BP 126/61; TEMP 97; O2SAT 95
[2025-02-12 20:00] VITALS: BP 126/60; TEMP 98.2; O2SAT 97
[2025-02-13 04:00] VITALS: BP 184/88; TEMP 97.8; O2SAT 95
[2025-02-13 06:00] VITALS: TEMP 97.8; O2SAT 95
[2025-02-13 06:35] VITALS: BP 121/66
[2025-02-13 07:56] VITALS: BP 129/61
[2025-02-13] MEDS: hydroCHLOROthiazide 25 MG TAB PO SCH (07:56)
== END 2025-02-13 11:53 | DRG 560 ==
LOC: M PM&R 16:37
PROVIDERS: ADMIT Physical Medicine & Rehabilitation; ATTEND Physical Medicine & Rehabilitation
DX: S72.21XD Displaced subtrochanteric fracture of right femur, subsequent encounter for closed fracture with routine healing (principal); N17.9 Acute kidney failure, unspecified; S42.201D Unspecified fracture of upper end of right humerus, subsequent encounter for fracture with routine healing; S72.141D Displaced intertrochanteric fracture of right femur, subsequent encounter for closed fracture with routine healing; Z86.73 Personal history of transient ischemic attack (TIA), and cerebral infarction without residual deficits; I25.10 Atherosclerotic heart disease of native coronary artery without angina pectoris; Z95.5 Presence of coronary angioplasty implant and graft; F41.9 Anxiety disorder, unspecified; F32.A Depression, unspecified; I10 Essential (primary) hypertension; E11.9 Type 2 diabetes mellitus without complications; E78.5 Hyperlipidemia, unspecified; J44.9 Chronic obstructive pulmonary disease, unspecified; M48.02 Spinal stenosis, cervical region; F17.210 Nicotine dependence, cigarettes, uncomplicated; D64.9 Anemia, unspecified; Z79.899 Other long term (current) drug therapy; E87.6 Hypokalemia; R33.9 Retention of urine, unspecified; D72.829 Elevated white blood cell count, unspecified; R31.9 Hematuria, unspecified; K59.00 Constipation, unspecified; V09.20XD Pedestrian injured in traffic accident involving unspecified motor vehicles, subsequent encounter

== ENCOUNTER → 2025-02-19 | Outpatient (REF) ==
[~2025-02-19] MED LIST changes: +AMLO1TAB24 PO; +FAMO20TA PO; +HYDR25TA87 PO; +IBUP-1114 PO; +LIDO5TD TD; +METH-1165 PO; +POTA-136 PO; +TAMS-18 PO; +VANI1CRE5 TOP; +ZOLP-532 PO
[2025-02-19 14:51] LABS: PLATELET COUNT, AUTOMATED 275 10^3/uL (150-450)
[2025-02-19 15:28] LABS: ALT/SGPT 21.0 U/L (7.0-40); AST/SGOT 25.0 U/L (<34); CALCIUM LEVEL 9.4 MG/DL (8.3-10.6); CARBON DIOXIDE LEVEL 21.0 MMOL/L (20-31); CHLORIDE LEVEL 106.0 MMOL/L (98-107); CREATININE FOR GFR 0.89 MG/DL (0.70-1.30); GLOMERULAR FILTRATION RATE 88.3 (>42); POTASSIUM SERUM 3.9 MMOL/L (3.5-5.1); SODIUM LEVEL 140.0 MMOL/L (136-145)
== END ==
LOC: SKLAB2 14:10
PROVIDERS: ATTEND Family Medicine
DX: N18.9 Chronic kidney disease, unspecified (principal); D63.1 Anemia in chronic kidney disease

== ENCOUNTER → 2025-02-21 | Outpatient (CLI) | payer MEDICARE | LOC: M SOG 08:28 | PROVIDERS: ATTEND Physician Assistant | DX: S72.141A Displaced intertrochanteric fracture of right femur, initial encounter for closed fracture (principal); Z53.9 Procedure and treatment not carried out, unspecified reason ==

== ENCOUNTER → 2025-03-15 | Outpatient (REF) | LOC: M RAD 13:55 | PROVIDERS: ATTEND Physician Assistant | DX: S42.201D Unspecified fracture of upper end of right humerus, subsequent encounter for fracture with routine healing (principal); S72.141D Displaced intertrochanteric fracture of right femur, subsequent encounter for closed fracture with routine healing; X58.XXXD Exposure to other specified factors, subsequent encounter ==

== ENCOUNTER → 2025-04-04 | Outpatient (REF) | LOC: M RAD 11:13 | PROVIDERS: ATTEND Physician Assistant | DX: S42.201D Unspecified fracture of upper end of right humerus, subsequent encounter for fracture with routine healing (principal); S72.141D Displaced intertrochanteric fracture of right femur, subsequent encounter for closed fracture with routine healing ==

== ENCOUNTER → 2025-06-04 | Outpatient (CLI) | payer MEDICARE | LOC: M SOG 07:35 | PROVIDERS: ATTEND Physician Assistant | DX: Z53.9 Procedure and treatment not carried out, unspecified reason (principal); S42.201D Unspecified fracture of upper end of right humerus, subsequent encounter for fracture with routine healing; S72.141D Displaced intertrochanteric fracture of right femur, subsequent encounter for closed fracture with routine healing ==